=== PATIENT | female | born 1990 | race Caucasian/White ===

== ENCOUNTER 2021-01-21 16:09 | Observation (INO) | payer OTHER, SELFPAY ==
[2021-01-21 16:47] VITALS: BP 122/83; PULSE 121; RESP 19; TEMP 37.2; O2SAT 100
--- NOTE | 2021-01-21 16:49 | ECG_ITS ---
Measurements Intervals [place] Rate: 101 P: 59 MN: 180 QRS: 80 QRSD: 93 T: 52 QT: 348 QTc: 453 Interpretive Statements SINUS TACHYCARDIA POSSIBLE LEFT ATRIAL ENLARGEMENT BORDERLINE T WAVE ABNORMALITY- ANTERIOR LEADS BASELINE ARTIFACT- I, II, III, AVR, AVF, V1, V4-V6 BORDERLINE ECG Electronically Signed On 01-22-2021 7:58:41 CDT by Bernabe Alva D.O.
--- NOTE | 2021-01-21 16:51 | ED.GENADULT ---
HPI - General Adult General Chief complaint: Overdose Stated complaint: Unspecified Time Seen by Provider: 01/21/21 16:37 Source: EMS and RN notes reviewed Mode of arrival: EMS Limitations: other (Refuses to answer my interview questions) History of Present Illness HPI narrative: Patient brought in by EMS with reports of agitation. Patient refuses to answer any of my interview questions with majority of history was obtained from nursing staff. Apparently patient was at a sports complex earlier today and was increasingly agitated. Police were contacted and they then notified EMS. They transported her to the hospital for further evaluation. Nursing staff here inform me that the patient took some hallucinogenic shrooms last night. In order to counteract how she felt, she took several tablets of Flexeril. There is a empty bottle of Flexeril here in the emergency department with a dispense quantity of 60 from just a few days ago. Nursing staff informed me that patient took anywhere between 20 and 52 tablets of Flexeril. On my initial evaluation, patient is pacing around in the room with a disheveled appearance. She refuses to answer any of my interview questions. Related Data Home Medications Medication Instructions Recorded Confirmed buspirone mg 01/21/21 cyclobenzaprine mg 01/21/21 sertraline mg 01/21/21 Allergies Allergy/AdvReac Type Severity Reaction Status Date / Time No Known Allergies Allergy Verified 05/03/17 10:38 Review of Systems Review of Systems: ROS unobtainable: Yes unobtainable due to mental status PMFSH Past Medical History Medical History (Updated 01/21/21 @ 21:58 by Thai Perez, LOBO, ) Anxiety Substance abuse Surgical History Surgical History No pertinent past surgical history Social History Social History Substance use type: hallucinogens and painkillers Gender identity (if verbalized by the patient): Female Exam Narrative: GENERAL: Disheveled appearance, in no distress HEAD: Normocephalic, atraumatic. EYES: PERRLA and EOMI. ENT: Nares clear, no rhinorrhea or epistaxis. Mucous membranes moist. Oropharynx without tonsillar hypertrophy exudate or other lesions. Bilateral TMs pearly bearden nonbulging NECK: Supple. No adenopathy or masses. No carotid bruits or JVD CHEST: Clear to auscultation. No respiratory distress. No wheezes rales or rhonchi HEART: Regular rate and rhythm. No murmur heard. Normal peripheral pulses. ABDOMEN: Soft, nontender, nondistended, normal active bowel sounds. EXTREMITIES: Normal range of motion. No edema. SKIN: Warm, dry, no rash. NEURO: Alert, Refuses to answer majority of my interview question. She does provide some mumbled responses to nurses questions PSYCH: Anxious, guarded, easily distracted Course Course Emergency Course: This is a 30-year-old female who presented in an agitated state after taking an unknown quantity of Flexeril. Poison control was contacted who recommended an EKG, serum labs including CPK, and administration of benzodiazepines. Initially give her 1 mg of Ativan. She continued to remain agitated so I gave her an additional milligram. Pt required 2mg ativan thereafter. She remained agitated so I discussed case with Dr Serrano. He recommended administration of valium, which I ordered. On reassessment, pt was sleeping. I endorsed case to Dr Serrano at the end of my shift. Vital Signs Vital signs: Vital Signs Temperature 37.2 C 01/21/21 16:47 Pulse Rate 121 H 01/21/21 16:47 Respiratory Rate 19 01/21/21 16:47 Blood Pressure 122/83 01/21/21 16:47 Pulse Oximetry 100 01/21/21 16:47 Temperature 37.2 C 01/21/21 16:47 Pulse Rate 118 H 01/21/21 18:44 Respiratory Rate 17 01/21/21 18:44 Blood Pressure 122/83 01/21/21 16:47 Pulse Oximetry 97 01/21/21 18:44 Medical Dec
[2021-01-21 16:53] VITALS: RESP 15
[2021-01-21] MEDS: LORazepam INJ (*CRX) 2 MG/ML VIAL 1 MG IV PUSH ×2 (17:03→18:36)
[2021-01-21 17:14] LABS: Basophils Percent Auto 0.2 % (0.2-1.2); Eosinophils Absolute Auto 0.1 K/mm3 (0-0.3); Eosinophils Percent Auto 0.8 % (0-4.4); Hematocrit 43.6 % (37.0-47.0); Hemoglobin 14.8 g/dL (12.0-15.0); Immature Granulocyte Absolute 0.03 K/mm3 (0.00-0.031); Immature Granulocyte Percent A 0.3 % (0-0.5); Mean Corpuscular HGB Conc 33.9 g/dl (32-36); Mean Corpuscular Hemoglobin 33.1 pg (26-34); Mean Corpuscular Volume 97.5 fl (80-100); Mean Platelet Volume 9.9 fl (7.4-10.4); Monocytes Absolute Auto 0.5 K/mm3 (0.1-0.6); Monocytes Percent Auto 4.1 % (2.6-8.5); Neutrophils Absolute Auto 9.8 K/mm3 (1.3-6.7); Neutrophils Percent Auto 86.6 % (45.5-73.1); Platelet Count Result 243 k/mm3 (150-375); Red Blood Count 4.47 M/mm3 (4.2-5.4); Red Cell Distribution Width 12.9 % (11.5-14.5); White Blood Count 11.3 K/mm3 (4.5-10.0)
[2021-01-21 17:22] LABS: Prothrombin Time 13.4 Seconds (11.1-14.7)
[2021-01-21 17:23] LABS: Partial Thromboplastin Time 29.2 SECONDS (22.3-36.8)
--- NOTE | 2021-01-21 17:25 | PC.NURSE ---
Patient has been pacing room, trying to walk the hallways, restless and unable to sit still. Patient trying to open cabinets in the room. Medicated per MAR for her anxiety and restlessness, continues to pace her room. Patient redirectable but requires frequent reminders. Patient currently only oriented to herself, disoriented to time and place. Sitter initiated and at bedside for patient safety/risk for elopement. Continues to deny any suicidal thoughts or intentions.
[2021-01-21 17:26] LABS: Alanine Aminotransferase 17 U/L (4-35); Alkaline Phosphatase 75 U/L (38-126); Anion Gap 9 mmol/L (8-16); Aspartate Amino Transferase 26 U/L (14-36); Blood Urea Nitrogen 8 mg/dL (7-17); Calcium 9.6 mg/dL (8.4-10.2); Carbon Dioxide 23 mmol/L (22-30); Chloride 110 mmol/L (98-107); Estimated Glomerular Filt Rate > 60; Ethanol < 10 mg/dL (<10); Glucose 107 mg/dL (65-110); Potassium 3.7 mmol/L (3.4-5.0); Salicylate < 1.0 mg/dL (2-20); Sodium 142 mmol/L (137-145)
[2021-01-21 17:38] LABS: Acetaminophen < 10 ug/mL (10-30)
--- NOTE | 2021-01-21 18:13 | PC.NURSE ---
RN spoke with Rona with poison control regarding patient's cyclobenzaprine ingestion. Per poison control, concern for conduction problems and rhabdo, check EKG and CK level. They stated to be generous with benzo's to control symptoms of anxiety, restlessness, and pacing. Have not been able to obtain an EKG due to patient's inability to sit still. Patient exhibiting signs of visual hallucinations, grabbing and picking at things, per poison control this could also be related to the cyclobenzaprine. Discussed this conversation with patient's provider.
[2021-01-21 18:44] VITALS: PULSE 118; RESP 17; O2SAT 97
--- NOTE | 2021-01-21 18:45 | PC.NURSE ---
RN to bedside to check on patient after last dose of lorazepam, needing to get EKG on patient. Patient remains restless, walking around room with visual hallucinations grabbing and pinching the air. Attempted to get VS on patient, patient uncooperative with blood pressure. HR 118, 97% on RA. Patient removed her BP cuff and became agitated each time we tried to take it. Provider made aware that patient is still restless, still unable to obtain EKG. Plan for additional medication. .
--- NOTE | 2021-01-21 19:05 | PC.NURSE ---
pt to this RN, I will stab you and fuck your face up . pt put back in bed. will continue to monitor.
[2021-01-21] MEDS: LORazepam INJ (*CRX) 2 MG/ML VIAL IV PUSH (19:13)
--- NOTE | 2021-01-21 19:41 | PC.NURSE ---
Assumed care of pt at this time, report taken from Yahaira KAMARA. Pt alert to self and time, disoriented to place. Pt observed grasping things that cannot be seen by this RN. Appears to be having visual hallucinations. Pt pacing around room with unsteady gait, but able to be redirected to rest on stretcher. Lights dimmed and blanket given. Sitter at bedside for safety and elopement risk.
[2021-01-21 19:47] LABS: Creatine Kinase 226 U/L (30-135)
[2021-01-21] MEDS: SODIUM CHLORIDE 0.9% IV 1,000 ML 999 ML IV CONT (22:30)
[2021-01-21] MEDS: diazePAM INJ (*CRX) 10 MG/2 ML SYRINGE 5 MG IV PUSH (22:31)
[2021-01-21 22:44] VITALS: PULSE 108; RESP 22; O2SAT 99
--- NOTE | 2021-01-21 23:34 | PM.IMHP ---
H&P: HPI History of Present Illness Date/Time: 01/21/21 23:34 Chief Complaint: Agitation Narrative: Patient is 30-year-old female brought in by EMS due to reports of agitation. According to the ED report patient was at [place] complex earlier today and was increasingly agitated. [employer] were contacted and EMS was notified. They transported her to the hospital for further evaluation. Patient had told the ED staff that she took some hallucinogenic mushrooms last night. To counteract how she felt after she took those she took several tablets of Flexeril. There is noted empty bottle of Flexeril in the ED with a dispense quantity of 60 from just a few days ago. It is unclear how much/many Flexeril tablets she took. Currently patient is noted to be restless in bed and not able to provide me any history. She is making gestures of smoking during my evaluation. She otherwise answers questions regarding her name and location. Review of Systems Review of Systems: ROS unobtainable: Yes unobtainable due to medical condition and unobtainable due to mental status PMFSH Past Medical History Medical History (Updated 01/22/21 @ 00:38 by Irving Rasheed MD) Anxiety Substance abuse Surgical History Surgical History No pertinent past surgical history Social History Social History Substance use type: hallucinogens and painkillers Gender identity (if verbalized by the patient): Female Meds Home Medications and Allergies Home Medications Medication Instructions Recorded Confirmed Type buspirone mg 01/21/21 History cyclobenzaprine mg 01/21/21 History sertraline mg 01/21/21 History Allergies Allergy/AdvReac Type Severity Reaction Status Date / Time No Known Allergies Allergy Verified 05/03/17 10:38 Vital Signs Vital Signs - 24 hr 01/21/21 16:47 01/21/21 16:53 01/21/21 18:44 Temperature 98.9 F Pulse Rate 121 H 118 H Respiratory Rate 19 15 17 Blood Pressure 122/83 Pulse Oximetry 100 97 01/21/21 22:44 Temperature Pulse Rate 108 H Respiratory Rate 22 H Blood Pressure Pulse Oximetry 99 Exam Narrative: GENERAL: Disheveled appearance, restless HEAD: Normocephalic, atraumatic. EYES: PERRLA and EOMI. ENT: Nares clear, no rhinorrhea or epistaxis. Mucous membranes dry NECK: Supple. No adenopathy or masses. No carotid bruits or JVD CHEST: Clear to auscultation. No respiratory distress. No wheezes rales or rhonchi HEART: Regular rate and rhythm. No murmur heard. Normal peripheral pulses. ABDOMEN: Soft, nontender, nondistended, normal active bowel sounds. EXTREMITIES: Normal range of motion. No edema. SKIN: Warm, dry, no rash. NEURO: Alert, answers appropriately to her name and location not able to further evaluate her history moving all extremities PSYCH: Restless hallucinating making gestures of smoking H&P: Results Labs Labs: Short CBC 01/21/21 Range/Units 17:05 WBC 11.3 H (4.5-10.0) K/mm3 Hgb 14.8 (12.0-15.0) g/dL Hct 43.6 (37.0-47.0) % Plt Count 243 (150-375) k/mm3 BMP 01/21/21 17:05 Sodium 142 Potassium 3.7 Chloride 110 H Carbon Dioxide 23 BUN 8 Creatinine 0.90 Glucose 107 Calcium 9.6 Cardiac Enzymes 01/21/21 Range/Units 17:05 Total Creatine Kinase 226 H (30-135) U/L Liver Function 01/21/21 Range/Units 17:05 Total Bilirubin 1.0 (0.2-1.3) mg/dL AST 26 (14-36) U/L ALT 17 (4-35) U/L Alkaline Phosphatase 75 (38-126) U/L Albumin 5.0 (3.5-5.1) g/dL Assessment and Plan Assessment and plan (1) Acute psychosis: Code(s): F23 - Brief psychotic disorder Status: Acute (2) Polysubstance abuse: Code(s): F19.10 - Other psychoactive substance abuse, uncomplicated Status: Acute (3) Anxiety: Code(s): F41.9 - Anxiety disorder, unspecified Status:
[2021-01-22] VITALS (8 sets, daily range): BP systolic 101–158; BP diastolic 57–92; PULSE 82–97; RESP 12–20; TEMP 37.1; O2SAT 97–100; BMI 29.0
[2021-01-22 00:21] LABS: Add Urine Microscopic? YES; Appearance Urine Clear (Clear); Bilirubin Urine Negative (Negative); Blood Urine 2+ (Negative); Color Urine Yellow (Yellow); Glucose Urine UA Negative (Negative); Ketones Urine Trace mg/dL (Negative); Leukocyte Esterase Ur Negative LEU/UL (Negative); Mucus Urine Rare /lpf; Nitrate Urine Negative (Negative); Protein Urine 1+ mg/dL (Negative); Specific Grav Ur 1.012 (1.001-1.035); Squamous Epithelial Cell Urine Rare /hpf (Few); Urobilinogen Urine Negative mg/dL (<2.0); WBC Urine 0-3 /hpf
[2021-01-22 00:26] LABS: Amphetamine Screen Urine Negative (Negative); Barbiturate Screen Urine Negative (Negative); Benzodiazepines Screen Urine Positive (Negative); Cannabinoid Screen Urine Positive (Negative); Cocaine Screen Urine Positive (Negative); Methadone Screen Urine Negative (Negative); Opiate Screen Urine Positive (Negative); Phencyclidine Screen Urine Negative (Negative)
--- NOTE | 2021-01-22 01:53 | PC.NURSE ---
Pt currently A&Ox2, alert to time and self. States she thinks she is at the police station in [place]. Pt able to form coherent sentences and walk with minimal assistance. Pt requesting water and states she wants to go outside to smoke a cigarette. Pt offered to talk to EDP about nicotine patch, but declined. Offered water. Pt calm and cooperative while taking vital signs, educated on why monitor leads need to stay on, verbalized understanding.
--- NOTE | 2021-01-22 03:06 | PC.NURSE ---
Pt sleeping on stretcher, lights dimmed.
--- NOTE | 2021-01-22 03:35 | PC.NURSE ---
Received call from poison control requesting update, level of CK, and QT intervals on EKG. Gave room number for pts admission in case further updates are needed.
[2021-01-22 03:40] LABS: Beta HCG Quantitative < 2.39 mIU/ML
--- NOTE | 2021-01-22 04:36 | PC.NURSE ---
Addendum entered by Anabell Villatoro RN 01/22/21 04:36: Patient arrived to the floor at 0420. Original Note: This patient, Carol Serna, was admitted to IMU Room 204-01. Patient/family oriented to hospital policies and general routines including ID bracelet, bed and alarms, visiting hours, pain management, procedures, bathroom and other care routines, personal items, smoking policy, room service/diet, and visiting hours. Information on how to activate the Rapid Response Team has been discussed. Patient/Family are encouraged to report perceived risks to care and to ask questions if they do not understand what they are told or what they should do.
[2021-01-22] MEDS: SODIUM CHLORIDE 0.9% IV 1,000 ML 125 ML IV CONT (05:27)
--- NOTE | 2021-01-22 05:43 | ECG_ITS ---
Measurements Intervals [place] Rate: 86 P: 51 ID: 180 QRS: 65 QRSD: 92 T: 40 QT: 376 QTc: 450 Interpretive Statements SINUS RHYTHM BORDERLINE T WAVE ABNORMALITY- ANTERIOR LEADS BASELINE ARTIFACT- V1-V3 BORDERLINE ECG Electronically Signed On 01-22-2021 8:01:40 CDT by Bernabe Alva D.O.
--- NOTE | 2021-01-22 07:49 | PM.IMPN ---
Progress Note: A&P Assessment and Plan (1) Acute psychosis: Code(s): F23 - Brief psychotic disorder Status: Acute (2) Polysubstance abuse: Code(s): F19.10 - Other psychoactive substance abuse, uncomplicated Status: Acute (3) Anxiety: Code(s): F41.9 - Anxiety disorder, unspecified Status: Acute (4) Drug overdose: Code(s): T50.901A - Poisoning by unspecified drugs, medicaments and biological substances, accidental (unintentional), initial encounter Status: Acute Additional Plan This is a 30-year-old female who presented with agitation after taking unknown quantity of Flexeril +/-other substances. Poison control contacted overnight, recommended CPK, slightly elevated to 226, and prn benzo to prevent withdrawal, and monitoring on Tele. Thus far, no telemetry events. Continue running NS at 125cc/hr and trend CPK tomorrow morning, no JANN. PRN Ativan. Care coordination to help discuss rehab and inpatient psychiatric facilities with patient, though she is not overly eager about these options. AOx4, and denies suicidal and homicidal ideation. Time Spent With Patient Time with patient: less than 15 minutes Subjective Date/time seen: 01/22/21 07:49 no acute complaints ao4, able to engage in conversation Review of Systems Review of Systems: All systems reviewed & are unremarkable except as noted in HPI and below Exam Const: General: no acute distress Neck: Neck: no JVD Resp: Effort & Inspection: normal respiratory effort Auscultation: clear to auscultation bilaterally Cardio: Rate: regular rate Rhythm: regular rhythm GI: GI Palp: Yes Soft to palpation and No Tenderness to palpation present (GI) Objective Data Vital Signs Vital Signs: Vital Signs - 24 hr 01/21/21 16:47 01/21/21 16:53 01/21/21 18:44 Temperature 98.9 F Pulse Rate 121 H 118 H Respiratory Rate 19 15 17 Blood Pressure 122/83 Pulse Oximetry 100 97 01/21/21 22:44 01/22/21 01:51 01/22/21 03:12 Temperature Pulse Rate 108 H 82 97 Respiratory Rate 22 H 14 20 Blood Pressure 102/57 L 109/92 H Pulse Oximetry 99 100 99 01/22/21 04:20 01/22/21 05:18 01/22/21 05:37 Temperature 98.7 F Pulse Rate 84 86 Respiratory Rate 16 Blood Pressure 158/79 H Pulse Oximetry 97 97 01/22/21 06:00 Temperature Pulse Rate 90 Respiratory Rate Blood Pressure Pulse Oximetry Intake/Output Intake/Output: Intake & Output 01/19/21 01/20/21 01/21/21 01/22/21 23:59 23:59 23:59 23:59 Intake Total 1000 Output Total 0 Balance 1000 0 Meds/Results Medications: Active Medications Generic Name Dose Route Start Last Admin Trade Name Freq PRN Reason Stop Dose Admin Enoxaparin Sodium 40 mg 01/22/21 09:00 Enoxaparin 40 Mg/0.4 Ml Syringe SUB-Q DAILY ROBIN Sodium Chloride 1,000 mls @ 125 mls/hr 01/22/21 00:45 01/22/21 05:27 Normal Saline Iv IV CONT 125 mls/hr .Q8H ROBIN Administration Acetaminophen 1,000 mg in 100 mls @ 400 mls/hr 01/22/21 02:28 Ofirmev 1,000 Mg Ivpb IVPB 01/23/21 02:27 Q6H PRN Mild Pain (1-3) or Fever Lorazepam 1 mg 01/22/21 00:42 Lorazepam Inj (*Crx) 2 Mg/Ml Vial IV PUSH Q6H PRN Anxiety Ondansetron HCl 4 mg 01/22/21 02:28 Ondansetron Inj 4 Mg/2 Ml Vial IV PUSH Q4H PRN Nausea Labs Labs: Laboratory Results - last 24 hr 01/21/21 01/21/21 01/21/21 17:05 17:05 17:05 WBC 11.3 H RBC 4.47 Hgb 14.8 Hct 43.6 MCV 97.5 MCH 33.1 MCHC 33.9 RDW 12.9 Plt Count 243 MPV 9.9 Immature Gran % (Auto) 0.3 Neut % (Auto) 86.6 H Lymph % (Auto) 8.0 L [place] % (Auto) 4.1 Eos % (Auto) 0.8 Baso % (Auto) 0.2 Lymph # (Auto) 0.90 [place] # (Auto) 0.5 Eos # (Auto) 0.1 Baso # (Auto) 0.0 Abs Immat Gran (auto) 0.03 Absolute Neuts (auto) 9.8 H Absolute Nucleated RBC 0.0 Nucleated RBC % 0.0 PT 13.4 INR 1.0 APTT 29.2 Sodium
[2021-01-22] MEDS: LORazepam INJ (*CRX) 2 MG/ML VIAL 1 MG IV PUSH (08:00)
--- NOTE | 2021-01-22 11:12 | PC.NURSE ---
Patient leaving AMA at this time. Discussed with patient reasons we do not wish her to go and potential consequences/dangers. Patient adamant of leaving at this time. notified.
== END 2021-01-22 11:15 | disposition left against medical advice (07) ==
LOC: ANHED 16:51 → ANHIMU 01-22 03:07
PROVIDERS: Admitting Provider Internal Medicine; Emergency Provider Nurse Practitioner; Visit Provider Internal Medicine
DX: T50.901A Poisoning by unspecified drugs, medicaments and biological substances, accidental (unintentional), initial encounter (principal); F23 Brief psychotic disorder; R45.1 Restlessness and agitation; F19.10 Other psychoactive substance abuse, uncomplicated; F41.9 Anxiety disorder, unspecified
CPT/HCPCS: 36415; 80053; 80307; 81001; 82550; 84443; 84702; 85025; 85610; 85730; 93005; 96361; 96374; 96375; 96376; 99285; G0378; G0379; J0131; J2060; J3360; J7030